=== PATIENT | female | born 1955 | race Caucasian/White ===

== ENCOUNTER 2017-02-16 08:54 | Inpatient (IN) | payer OTHER ==
[2017-01-28 10:30] VITALS: BMI 43.0
--- NOTE | 2017-01-28 11:02 | PAT Medication Instructions ---
Service Date Jan 28, 2017. Current Home Medication List Alprazolam (Xanax), 0.25 MG PO PRN Budesonide (Inhalation) (Pulmicort Respules 0.5MG/2ML), 2 ML INH QAM Cholecalciferol (Vitamin D3), 2,000 UNITS PO QAM Cyanocobalamin (Vitamin B12 500MCG), 1,000 MCG PO QAM Fluticasone Prop/Salmeterol (Advair Diskus 100/50 60 Dose), 2 PUFF INH BID Hydrocodone-Acetaminophen (Hydrocodone/Acetaminophen), 1 TAB PO Q4-6H Lisinopril (Zestril), 10 MG PO QAM Sulindac (Sulindac), 200 MG PO BID Medication Instructions For Your Scheduled Surgery - Check with surgeon for instructions: Sulindac (Sulindac), 200 MG PO BID - Hold the following medications the morning of surgery: Cholecalciferol (Vitamin D3), 2,000 UNITS PO QAM Cyanocobalamin (Vitamin B12 500MCG), 1,000 MCG PO QAM Lisinopril (Zestril), 10 MG PO QAM - Take the following medications the morning of surgery with a sip of water: Hydrocodone-Acetaminophen (Hydrocodone/Acetaminophen), 1 TAB PO Q4-6H (okay to take up to 4 hours prior to surgery if needed) Fluticasone Prop/Salmeterol (Advair Diskus 100/50 60 Dose), 2 PUFF INH BID Budesonide (Inhalation) (Pulmicort Respules 0.5MG/2ML), 2 ML INH QAM Alprazolam (Xanax), 0.25 MG PO PRN (if needed) - Take the following medications as scheduled the night before surgery: Hydrocodone-Acetaminophen (Hydrocodone/Acetaminophen), 1 TAB PO Q4-6H (if needed ) Fluticasone Prop/Salmeterol (Advair Diskus 100/50 60 Dose), 2 PUFF INH BID Alprazolam (Xanax), 0.25 MG PO PRN (if needed) If you have any questions please call us at [phone] or [phone] or [phone]
[2017-01-28 11:26] LABS: BASO % 0.6 %; BASO ABS # 0.03 K/uL (0-0.2); EOS ABS # 0.15 K/uL (0-0.5); HEMATOCRIT 41.4 % (37-47); HEMOGLOBIN 13.7 g/dL (12.0-16.0); IG# 0.01 K/uL (0.00-0.02); LYMPH % 22.2 %; LYMPH ABS # 1.11 K/uL (1.2-3.4); MEAN CELL VOLUME 100.7 fL (80-100); MEAN CORPUSCULAR HEMOGLOBIN 33.3 pg (25-34); MEAN CORPUSCULAR HGB CONC 33.1 g/dl (32-36); MEAN PLATELET VOLUME 9.2 fL (7.4-10.4); MONO % 12.2 %; MONO ABS # 0.61 K/uL (0.11-0.59); NEUT % 61.8 %; NEUT ABS # 3.08 K/uL (1.4-6.5); PLATELET COUNT 206 K/uL (130-400); RED CELL DISTRIBUTION WIDTH CV 12.4 % (11.5-14.5); RED CELL DISTRIBUTION WIDTH SD 45.5 fL (36.4-46.3); WHITE BLOOD COUNT 4.99 K/uL (4.8-10.8)
[2017-01-28 11:31] LABS: PTT PATIENT 25.3 SECONDS (21.0-31.0)
--- NOTE | 2017-01-28 11:37 | DIAGNOSTIC IMAGING REPORT ---
CHEST 2 VIEWS ROUTINE CLINICAL HISTORY: PAT preoperative evaluation COMPARISON STUDY: No previous studies for comparison. FINDINGS: The bones soft tissues and hemidiaphragms are normal. The cardiomediastinal silhouette is normal. The lungs are clear. The pulmonary vasculature is normal. IMPRESSION: Negative chest. The above report was generated using voice recognition software. It may contain grammatical, syntax or spelling errors. Electronically signed by: Dariel Ponce M.D. 01/28/2017 11:35 AM Dictated Date/Time: 01/28/2017 11:35 AM
[2017-01-28 12:29] LABS: CALCIUM 9.6 mg/dl (8.5-10.1); CREATININE 0.92 mg/dl (0.60-1.20); POTASSIUM 4.3 mmol/L (3.5-5.1)
--- NOTE | 2017-02-11 08:12 | HISTORY & PHYSICAL EXAMINATION ---
DATE OF ADMISSION: 02/16/2017 CHIEF COMPLAINT: Right knee pain. HISTORY OF PRESENT ILLNESS: This patient is a 61-year-old female who is status post a left knee replacement done about 7 months ago who presents for surgical treatment of her right knee. She continues to be bothered by right knee pain and discomfort. She has been treated extensively at [facility] with injections which have become less successful over time. Pain is global in her knee. It is increased with weightbearing. She has nighttime discomfort. She is happy with the left knee and would like to have her right knee replaced. PAST MEDICAL HISTORY: 1. Hypertension. 2. Asthma. 3. Obesity with a BMI of 43. 4. Sleep apnea with CPAP machine. 5. Hiatal hernia. 6. Gastroesophageal reflux disease. PAST SURGICAL HISTORY: Include: 1. Right eye surgery. 2. Left eye surgery. 3. Herniorrhaphy. 4. Left knee scope. 5. Left total knee replacement done on 07/11/2015. ALLERGIES: None. CURRENT MEDICINES: 1. Sulindac 200 mg twice a day. 2. Lisinopril 10 mg a day. 3. Vitamin B12. 4. Vitamin D3. 5. Advair 2 puffs twice a day. 6. Budesonide inhaler daily. 7. Ipratropium bromide inhaler daily. SOCIAL HISTORY: A 61-year-old white female. She is . She is from [place]. 1-2 drinks per week. Two children. No significant drug or alcohol at history. FAMILY HISTORY: Negative for heart disease, diabetes, or blood clots. REVIEW OF SYSTEMS: Negative for diabetes. Denies any chest pain or shortness of breath. No history of DVT or PE. PHYSICAL EXAMINATION: GENERAL: Reveals a healthy, pleasant middle-aged female looks to be in reasonably good health. HEENT: Benign. NECK: Supple. No lymphadenopathy. LUNGS: Clear to auscultation. HEART: Regular rate and rhythm. ABDOMEN: Soft, nontender, nondistended. EXTREMITIES: Grossly neurovascularly intact except as follows. Examination of both knees reveals the patient walks with a little bit of a waddling gait. Examination of the right knee reveals some slight varus alignment to her knee. She is tender over the medial joint line. Range of motion is 5-115. No instability. Moderate-sized knee effusion. X-RAYS: X-rays of the right knee revealed advanced right knee DJD. She has complete loss of her medial joint space. She has subchondral sclerosis. She has some tibial femoral subluxation. ASSESSMENT: A 61-year-old white female who is 7 months out from left knee replacement with advanced right knee degenerative joint disease. She has failed conservative care and would like to have her right knee replaced. PLAN: We are going to take her to the operating room and do a right total knee replacement. The risks and benefits of this procedure were explained to the patient including but not limited to DVT, PE, , infection, neurological injury, vascular injury, bleeding problem, pain, limited range of motion, stiffness, failure to relieve her symptoms, incomplete relief of symptoms, need for further surgery in the future, fracture, leg length inequality, nerve palsy, persistent pain, etc. The patient understands and desires to proceed. Informed consent was obtained. We did talk about holding her Sulindac 2 weeks preop and lisinopril the morning of surgery. She will bring her CPAP machine to the hospital. She is planning to be discharged to home with likely some home health, but does not have [employer] benefits.
[2017-02-16] VITALS (9 sets, daily range): BP systolic 121–190; BP diastolic 71–101; PULSE 65–98; TEMP 36.6–37.2; O2SAT 96–100; Ht 149.9 cm; Wt 96.3 kg
[~2017-02-16] VITALS: Ht 149.9 cm; Wt 96.3 kg
[~2017-02-16 08:54] MED LIST: ACETAMINOPHEN 500 MG TAB PO SCH; ADVIN10/60 INH; ALPR-411 PO; BUPIVACAINE 0.5 % 5 MG/1 ML PF 10ML VIAL ONE; BUPIVACAINE LIPOSOME 266 MG, BUPIVACAINE/EPINEPHRINE INJ 50 ML, SODIUM CHLORIDE 0.9% PF... INFIL SCH; CEFAZOLIN 2000MG IV PUSH 10 ML IV SCH; CHOL1CAP57 PO; CLN200 PO; CYAN500T13 PO; FAMOTIDINE 20 MG TAB PO SCH; GABAPENTIN 300 MG CAP PO SCH; HYDR-4380 PO; LACTATED RINGER'S 1000ML 1,000 ML IV SCH; LACTATED RINGER'S 1000ML 500 ML IV ONE; LACTATED RINGER'S 1000ML IV SCH; LISI-461 PO; METOCLOPRAMIDE HCL 10 MG TAB PO SCH; PLMINS INH; SCOPOLAMINE 1.5 MG TDSY TD SCH; TRANEXAMIC ACID INJ 1,000 MG in SYRINGE 0 ML IV SCH
--- NOTE | 2017-02-16 10:15 | History & Physical Bridge Note ---
H&P Re-Evaluation Bridge Note: I have examined the patient, reviewed the History & Physical and in the interval since the performance of the History & Physical I have noted the following changes of clinical significance: No changes noted
[2017-02-16] MEDS ORDERED: MIDAZOLAM HCL 1 MG/ML 2ML VIAL ONE ×3 (10:43→10:46)
[2017-02-16] MEDS ORDERED: FENTANYL CITRATE INJ 50 MCG/1 ML 2 ML VIAL ONE ×2 (10:44→12:41)
[2017-02-16] MEDS ORDERED: ATROPINE SULFATE 0.1 MG/ML 5ML SYR IV PRN (11:00)
[2017-02-16] MEDS ORDERED: ONDANSETRON INJ 2 MG/ML 2 ML VIAL IV PRN ×2 (11:00→14:00)
[2017-02-16] MEDS ORDERED: FENTANYL CITRATE INJ 50 MCG/1 ML 2 ML VIAL IV PRN (11:00)
[2017-02-16] MEDS ORDERED: EpHEDrine SULFATE INJ 50 MG/ML AMP IV PRN (11:00)
[2017-02-16] MEDS ORDERED: SODIUM CHLORIDE 0.9% PF 50 ML VIAL ONE (12:03)
[2017-02-16] MEDS ORDERED: BUPIVACAINE LIPOSOME 1/3% 266 MG/20 ML VIAL INFIL ONE (12:03)
[2017-02-16] MEDS ORDERED: BUPIVACAINE/EPINEPHRINE 0.25% 1:200,000 30 ML VIAL ONE (12:03)
[2017-02-16] MEDS ORDERED: BACITRACIN 50000 UNIT VIAL ONE (12:03)
[2017-02-16] MEDS ORDERED: LIDOCAINE HCL 2% 2 ML VIAL (20MG/ML) ONE (13:11)
[2017-02-16] MEDS ORDERED: PROPOFOL IV EMULSION 10 MG/ML 20 ML VIAL IV ONE (13:11)
[2017-02-16] MEDS ORDERED: EpHEDrine SULFATE INJ 50 MG/ML AMP ONE (13:12)
--- NOTE | 2017-02-16 13:58 | [facility] Post Operative Brief Note ---
Immediate Operative Summary Operative Date Feb 16, 2017. Pre-Operative Diagnosis Right Knee Advanced Degenerative Joint Disease Post-Operative Diagnosis Right Knee Advanced Degenerative Joint Disease Procedure(s) Performed Right Total Knee Arthroplasty Surgeon Dr. Rucker Photographer Apprentice Surgeon(s) BRANDY Leonard Estimated Blood Loss 50ml Findings Right Knee DJD Fluids (cc crystalloids) 1300 cc Specimens A. Right Knee Bone and Tissue Drains None Anesthesia Spinal Complication(s) None Disposition Recovery Room / PACU
[2017-02-16] MEDS ORDERED: METOCLOPRAMIDE HCL INJ 5 MG/ML 2 ML VIAL IV PRN (14:00)
[2017-02-16] MEDS ORDERED: BISACODYL 10 MG SUPP PR PRN (14:00)
[2017-02-16] MEDS ORDERED: DiphenhydrAMINE HCL 50 MG/ML VIAL IV PRN (14:00)
[2017-02-16] MEDS ORDERED: MAGNESIUM HYDROXIDE SUSP 30 ML UDC PO PRN (14:00)
[2017-02-16] MEDS ORDERED: SILVER SULFADIAZINE 1% CR 50 GM JAR EXT PRN (14:00)
[2017-02-16] MEDS ORDERED: ALUMINUM/MAGNESIUM/SIMETH (MAALOX MAX) 30 ML UDC PO PRN (14:00)
[2017-02-16] MEDS ORDERED: MoRPHine SULFATE 2 MG/ML CARP IV PRN (14:00)
[2017-02-16] MEDS ORDERED: ZOLPIDEM TARTRATE 5 MG TAB PO PRN (14:00)
--- NOTE | 2017-02-16 14:24 | DIAGNOSTIC IMAGING REPORT ---
R KNEE 1 OR 2 VIEWS ROUTINE CLINICAL HISTORY: 61 years-old Female presenting with AP/LATERAL IN PACU RIGHT KNEE. TECHNIQUE: Frontal and lateral views of the right knee were obtained. COMPARISON: 12/31/2016. FINDINGS: There has been interval total right knee arthroplasty with patellar resurfacing. Expected intra-articular and subcutaneous emphysema. Overlying skin cierra. Angulation of the patella on lateral view may be within the range of expected postsurgical findings. No acute fracture. IMPRESSION: Expected postsurgical appearance status post total right knee arthroplasty with patellar resurfacing. Electronically signed by: Isael Alfaro M.D. 02/16/2017 2:22 PM Dictated Date/Time: 02/16/2017 2:21 PM
--- NOTE | 2017-02-16 14:41 | OPERATIVE REPORT ---
DATE OF OPERATION: 02/16/2017 SURGEON: Tutu Rucker MD UROLOGY NURSE: BRANDY Salas PREOPERATIVE DIAGNOSIS: Right knee degenerative joint disease. POSTOPERATIVE DIAGNOSIS: Same. PROCEDURE PERFORMED: Right cemented posterior stabilized total knee arthroplasty. COMPLICATIONS: None. ESTIMATED BLOOD LOSS: 50 mL FLUID REPLACEMENT: 1300 mL crystalloid fluid replacement. TOURNIQUET TIME: 53 minutes at 300 mmHg. ANESTHESIA: Spinal with adductor canal block. DRAINS: None. SPECIMENS: Right knee sent for pathology. OPERATIVE INDICATIONS: The patient is a 61-year-old female who has had a long history of knee problems. She has been through extensive conservative treatment without adequate relief. She underwent a left knee replacement about 7 months ago and has done remarkably well. She continued to be bothered by right knee pain. She would like to proceed with operative treatment. OPERATIVE FINDINGS: Operative findings revealed advanced right knee DJD. She had extensive grade 4 changes in the medial femoral condyle and medial tibial plateau and less severe changes of the patellofemoral joint. She had a varus deformity to her knee. She had osteophytes medially as well as posteriorly. A moderate-sized joint effusion. OPERATIVE IMPLANTS: Operative implants consisted of: 1. Biomet Vanguard size 65 right posterior stabilized femoral component. 2. Biomet size 67 tibial tray. 3. A 10-mm posterior stabilized polyethylene insert. 4. A 28 x 8 all poly patella. OPERATIVE PROCEDURE: The patient taken to the operating room, identified and placed on the operating table in supine position. All contact areas were appropriately padded. IV antibiotics were provided by anesthesia team. A spinal anesthetic and adductor canal block had been provided in the holding area. Lyn catheter was placed in sterile fashion. Right thigh tourniquet was then placed and the right lower extremity was then prepped and draped in usual sterile fashion. The right leg was elevated and exsanguinated with Esmarch and tourniquet was placed at 300 mmHg. An anterior approach to the right knee was then performed through a longitudinal incision centered over the patella. Sharp dissection was carried out through the subcutaneous tissues down to the level of the extensor mechanism. A medial parapatellar arthrotomy incision was made. A subperiosteal dissection was carried out medially. The fat pad was resected from beneath the patellar tendon. The lateral patellofemoral ligament was released. The patella was everted and the knee was flexed. The osteophytes were taken off the distal femur. The ACL and PCL were then released from the distal femur and the tibia subluxated anteriorly. The external tibial alignment jig was then placed in the anterior face of the tibia and adjusted 14 mm medially. Proximal tibial cut was made to remove about a millimeter or 2 mm of bone from the most deficient aspect of the medial tibial plateau. Tibia was sized to a size 67. Some osteophytes were taken off medially and posteromedially. Attention was then drawn to the femur. The distal femur was entered with a sharp drill. Intramedullary canal was suctioned. A right 5-degree valgus cutting guide was placed. Distal femoral cutting block was pinned in place and the distal femoral cut was made to take an additional 3 mm of bone off the distal femur. The femur was then sized to a size 65. We did downsize this almost an entire size. Of note, her other side was a 62.5. The AP cutting block was pinned parallel to the epicondylar axis, which was 3 degrees of external rotation. The anterior cut, anterior chamfer, posterior cut, posterior chamfer cuts were made. Box cutting guide was placed and adjusted slight lateral and the box cut was made. The knee was flexed. The remnants of the medial and lateral menisci were excised. The osteophytes were taken off the posterior aspect of the femur. A trial femoral component was placed. Tibial tray was pinned in maximum external rotation and drill and stem punch were used to create defect in proximal tibia for the tibial tray. The knee was then trialed and the 10-mm insert fit most appropriately. Attention was then drawn to the patella. The patella was cleaned of all soft tissues. Patellar thickness measured 21 mm in thickness and it was cut down to 13. It was sized to a size 28 patella. Lug holes were drilled for the 28 patella. Lateral osteophyte was removed. Patella button was placed. Knee was taken through range of motion and patella tracked nicely with no thumbs test. Attention was then drawn toward placement of the permanent components. All trial components were removed. Bone plug was placed in the distal femur to limit blood loss. A double batch of Palacos G cement was mixed. A right size 65 posterior stabilized femoral component, size 67 tibial tray, a 10-mm posterior stabilized polyethylene insert, a 28 x 8 all poly patella were then cemented in place. Knee was brought out into full extension until cement hardened. A final cement check was then performed. Pericapsular tissues were injected with a total of 100 mL of a combination of 20 mL of Exparel, 30 mL of normal saline, 50 mL of 0.25% Marcaine with epinephrine. The tourniquet was then let down for a final tourniquet time of 53 minutes. Hemostasis was assured with the use of electrocautery. The extensor mechanism was then closed with a combination of #1 PDS suture and #1 Vicryl suture in a [id number] fashion. Extensor mechanism was checked and found to be intact. The subcutaneous tissues were then closed with 2-0 Dexon suture in a buried interrupted fashion. Skin was closed with skin cierra. Leg was then cleaned and dried and a sterile dressing of Xeroform, 4 x 4's, sterile cast padding and Corona bandage were applied. The patient was then transferred to the recovery room in stable condition. The patient tolerated the procedure well with no complications. All needle and sponge counts were correct at the end of the operation. I attest to the content of the Intraoperative Record and any orders documented therein. Any exception s are noted below.
--- NOTE | 2017-02-16 15:49 | Anesthesiology Progress Note ---
Anesthesia Post Op Note Date & Time Feb 16, 2017 at 15:49 Vital Signs Pain Intensity: 0.0 Vital Signs Past 12 Hours Date Time Temp Pulse Resp B/P (MAP) Pulse Ox O2 Delivery O2 Flow Rate FiO2 02/16/17 15:44 36.7 79 18 136/85 (102) 100 Nasal Cannula 2.0 02/16/17 15:24 100 Nasal Cannula 2.0 02/16/17 15:15 36.6 73 18 125/79 (94) 100 Nasal Cannula 2.0 02/16/17 14:45 100 Nasal Cannula 2.0 02/16/17 14:45 36.6 79 16 131/77 (95) 100 Nasal Cannula 2.0 02/16/17 14:30 36.3 78 18 128/66 97 Nasal Cannula 2 02/16/17 14:20 81 17 138/84 99 Oxymask 10 02/16/17 14:10 79 16 132/66 100 Oxymask 10 02/16/17 14:03 36.6 83 13 137/80 99 Oxymask 10 02/16/17 12:15 91 20 93/64 (74) 97 Mask 10 02/16/17 09:19 36.6 92 20 190/101 97 Room Air Notes Mental Status: alert / awake / arousable, participated in evaluation Pt Amnestic to Procedure: Yes Nausea / Vomiting: adequately controlled Pain: adequately controlled Airway Patency, RR, SpO2: stable & adequate BP & HR: stable & adequate Hydration State: stable & adequate Neuraxial Anesthesia: was administered, sensory block is resolving Anesthetic Complications: no major complications apparent
[2017-02-16] MEDS: OXYCODONE HCL IR 5 MG TAB (IMMEDIATE RELEASE) PO PRN ×2 (15:57→16:52)
[2017-02-16] MEDS: D5W AND 1/2NSS + 20MEQ KCL 1,000 ML IV SCH ×2 (15:58→23:58)
[2017-02-16] MEDS: CHECK SCOPOLAMINE PATCH PLACEMENT SCH ×2 (15:58→23:59)
[2017-02-16] MEDS: KETOROLAC TROMETHAMINE 30 MG/ML VIAL IV. SCH ×2 (15:58→22:00)
[2017-02-16] MEDS: ACETAMINOPHEN 500 MG TAB PO SCH ×2 (16:49→23:59)
[2017-02-16] MEDS: FERROUS GLUCONATE 324 MG TAB PO SCH (17:22)
[2017-02-16] MEDS ORDERED: TRANEXAMIC ACID INJ 1,000 MG in SODIUM CHLORIDE 0.9% 100ML 100 ML IV SCH (20:00)
[2017-02-16] MEDS: CEFAZOLIN IV 2,000 MG in SYRINGE 0 ML IV SCH (20:58)
[2017-02-16] MEDS: FLUTICASONE/SALMETEROL 100/50 (ADVAIR) 14 PUFF/1 INHALER INH SCH (20:59)
[2017-02-16] MEDS: TAPENTADOL ER 50 MG TABCR PO SCH (20:59)
[2017-02-16] MEDS: SENNA 8.6 MG TAB PO SCH (21:00)
[2017-02-16] MEDS: ASPIRIN 325 MG ECTAB PO SCH (21:00)
[2017-02-16] MEDS: DOCUSATE SODIUM 100 MG CAP PO SCH (21:00)
[2017-02-16] MEDS ORDERED: FRRG PO (21:34)
[2017-02-16] MEDS ORDERED: ACET-24 PO (21:34)
[2017-02-16] MEDS ORDERED: RXC5 PO (21:34)
[2017-02-16] MEDS ORDERED: ASPEC325 PO (21:34)
--- NOTE | 2017-02-16 21:37 | Discharge Instructions ---
Discharge Instructions Date of Service Feb 16, 2017. Admission Reason for Admission: Right Knee Degenerative Joint Disease Discharge Discharge Diagnosis / Problem: Right Knee Replacement Discharge Goals Goal(s): Decrease discomfort, Improve function, Increase independence, Improve disease control, Therapeutic intervention Activity Recommendations Activity Limitations: per Instructions/Follow-up section Weightbearing Status: Right weightbearing . Instructions / Follow-Up Instructions / Follow-Up ACTIVITY RECOMMENDATIONS: Physical Therapy: * You will go to physical therapy three times each week for four to six weeks after your surgery in order to regain your knee range of motion and to retrain your knee to work properly. * It is just as important to make sure you are getting your knee perfectly straight as it is to regain your knee bend. * Taking a pain pill an hour before therapy can help you have a more productive and comfortable therapy session. Home Exercise: * You were shown a series of exercises (heel props, heel slides, etc.) in the hospital. Do these exercises three to four times each day including the exercises you were shown in physical therapy. Walking: * Get up and walk several times each day. For the first four weeks, try not to stand or walk for more than one hour at a time. If you do stand or walk for more than one hour, you will not hurt anything, but your knee and leg will likely swell. * As you feel comfortable, you may change from the walker or crutches to a cane and then to independent walking. MEDICATIONS: New Medicine: * You will likely be taking one or more of these medications: 1. Oxycodone - A quick and shorter-acting pain medication. Take one to two tablets every four to six hours to lessen your pain. 2. Iron Sulfate - Take two times each day for the month after surgery to help you replace the blood lost during surgery. 3. Aspirin - Thins your blood to lessen the chance of forming a blood clot. * The most common side effects of pain medicine and iron are nausea and constipation. If nausea or constipation is too much of a problem or if you have any questions about your new medicines or doses, call [facility] at . We will try to help you manage these issues. VERY IMPORTANT TO READ AND REVIEW" Pain: * The immediate post-operative period after knee replacement surgery is often quite painful. * You are given a prescription for pain medicine. You should take it, as directed, when you need it, especially before physical therapy and before going to bed. Pain that interferes with sleep is very common and can last several months. * You will likely need pain medicine for the first four to six weeks. It will not stop all of the pain. The pain will lessen and as you feel better, you may change to milder pain medicine such as Tylenol. * The most common side effects of pain medicine are nausea and constipation, so don't take more than you need. SPECIAL CARE INSTRUCTIONS: TEDs/Elastic Stockings: * The white elastic stockings help limit swelling and prevent blood clots from forming in your legs. The more you wear them, the more they work. * Wear them for six weeks after knee replacement surgery and four weeks after partial knee replacement. Prevention of Infection: * Take antibiotics one hour before any dental cleaning, dental work, urological procedure, gastrointestinal procedure or any invasive surgery in order to prevent your new joint from getting infected. * You may get the antibiotics from the doctor performing the procedure or you may call our office at before and we will call in a prescription to the pharmacy of your choice. Things to Watch For: * Drainage from the incision site that occurs more than one week after your surgery. * Severely increased knee/leg pain or swelling. * Increased redness at the incision site. * Fever above 102 degrees Fahrenheit. * Unusual chest pain or shortness of breath. * Unusual pain or burning with urination. Call [facility] at with any of the above problems or if you have any questions about your medicines or recovery. FOLLOW UP VISIT: Make an appointment to see your doctor for approximately two weeks after surgery for a progress check and staple removal by calling the office at . Current Hospital Diet Patient's current hospital diet: Regular Diet Discharge Diet Recommended Diet: Regular Diet Procedures Procedures Performed: Right Total Knee Arthroplasty Pending Studies Studies pending at discharge: no Medical Emergencies . Who to Call and When: Medical Emergencies: If at any time you feel your situation is an emergency, please call [phone] immediately. . Non-Emergent Contact Non-Emergency issues call your: Surgeon . "Provider Documentation" section prepared by Tutu Rucker. . VTE Core Measure Inpt VTE Proph given/why not?: Other Anticoagulation, T.E.D. Stockings, SCD's
--- NOTE | 2017-02-16 22:25 | PROGRESS NOTE ---
DATE: 02/16/2017 SUBJECTIVE: A 61-year-old white female postop from a right knee replacement. She is having some pain. No chest pain or shortness of breath. Not feeling dizzy or lightheaded. Isolated right knee pain. OBJECTIVE: VITAL SIGNS: Temperature 36.9. Vital signs stable. GENERAL: A pleasant, middle-aged female. She is lying in bed, looks reasonably comfortable. LUNGS: Clear to auscultation. HEART: Has a regular rate and rhythm. ABDOMEN: Soft, nontender, nondistended. EXTREMITIES: Grossly neurovascularly intact except as follows. Examination of the right leg reveals the leg to be well aligned. Dressing is clean, dry and intact. She can dorsiflex and plantar flex her foot appropriately. She is neurologically intact. IMAGING: X-rays of the right knee from recovery room were reviewed. It shows a cemented posterior stabilized total knee arthroplasty. Components look to be in good position. No signs of problems. It is fairly rotated film. ASSESSMENT: A 61-year-old female postop from right knee replacement, doing pretty well. Pain is controlled. She is neurologically intact. PLAN: 1. Deep venous thrombosis prophylaxis including thigh-high TEDs, SCDs, and aspirin 2. Pain control, doing pretty well with current pain regimen. 3. IV antibiotics x24 hours. 4. Disposition: She is planning to be discharged to home and going to do outpatient therapy.
--- NOTE | 2017-02-16 23:44 | NUR ---
A: notified Dr. Casarez covering for Dr. Rucker about patients olmedo putting out bloody urine. Informed him that his is a complete change from earlier in the shift when she had clear yellow urine in her olmedo. New orders received to NOT pull olmedo in AM until Dr. Rucker sees it and to HOLD Torodol IV.
[2017-02-17] VITALS (12 sets, daily range): BP systolic 127–144; BP diastolic 79–84; PULSE 75–90; TEMP 37–38.2; O2SAT 92–96
[2017-02-17] MEDS ORDERED: NURSING VERBAL MED ORDER ONE ×3 (03:45→08:45)
[2017-02-17] MEDS: CEFAZOLIN IV 2,000 MG in SYRINGE 0 ML IV SCH (04:24)
[2017-02-17 06:01] LABS: HEMATOCRIT 35.2 % (37-47); HEMOGLOBIN 11.3 g/dL (12.0-16.0); MEAN CELL VOLUME 100.3 fL (80-100); MEAN CORPUSCULAR HEMOGLOBIN 32.2 pg (25-34); MEAN CORPUSCULAR HGB CONC 32.1 g/dl (32-36); MEAN PLATELET VOLUME 9.2 fL (7.4-10.4); PLATELET COUNT 172 K/uL (130-400); RED CELL DISTRIBUTION WIDTH CV 12.4 % (11.5-14.5)
[2017-02-17] MEDS: ACETAMINOPHEN 500 MG TAB PO SCH ×3 (06:13→21:56)
[2017-02-17] MEDS: OXYCODONE HCL IR 5 MG TAB (IMMEDIATE RELEASE) PO PRN ×3 (06:30→17:28)
[2017-02-17 06:38] LABS: CALCIUM 8.5 mg/dl (8.5-10.1); CREATININE 1.24 mg/dl (0.60-1.20); POTASSIUM 5.6 mmol/L (3.5-5.1)
[2017-02-17] MEDS: BUDESONIDE 0.5 MG/2 ML VIAL (PULMICORT) INH SCH (07:22)
[2017-02-17] MEDS: CHECK SCOPOLAMINE PATCH PLACEMENT SCH ×4 (08:00→23:45)
--- NOTE | 2017-02-17 08:12 | PROGRESS NOTE ---
DATE: 02/17/2017 SUBJECTIVE: 61-year-old white female postop day 1 from a right knee replacement. She is doing pretty well. Had a pretty good night. The pain is controlled. No chest pain or shortness of breath. Not feeling dizzy or lightheaded. OBJECTIVE: VITAL SIGNS: Temperature is 37.4. Vital signs stable. PHYSICAL EXAMINATION: GENERAL: Reveals a healthy pleasant, middle-aged female. She is sitting up in bed, looks pretty comfortable. EXTREMITIES: Examination of the right leg reveals the dressing to be clean, dry and intact. She can dorsiflex and plantarflex her foot appropriately. She is neurologically intact. LABORATORY DATA: Hemoglobin 11.3. Hematocrit 35.2. Electrolytes are stable. Creatinine is slightly elevated at 1.24. Potassium slightly elevated at 5.6. ASSESSMENT: 61-year-old white female postop day 1 from right knee replacement, doing pretty well. Pain is controlled. She is neurologically intact. Her creatinine is up a little bit and we are going to hold her Toradol. We are going to stop her IV fluids and get rid of the potassium. PLAN: 1. DVT prophylaxis including thigh-high TEDs, SCDs, and aspirin twice a day. 2. PT/OT. Weightbearing as tolerated. Right total knee protocol. 3. Pain control, doing pretty well with current pain regimen. 4. Elevated creatinine. We are going to stop her Toradol and encourage p.o. intake. We will also get rid of the potassium out of her IV. 5. Disposition: She is planning to be discharged to home and do outpatient therapy once adequately recovered.
--- NOTE | 2017-02-17 08:32 | Anesthesiology Progress Note ---
Anesthesia Post Op Note Date & Time Feb 17, 2017 at 08:31 Vital Signs Pain Intensity: 5.0 Vital Signs Past 12 Hours Date Time Temp Pulse Resp B/P (MAP) Pulse Ox O2 Delivery O2 Flow Rate FiO2 02/17/17 07:35 37.4 02/17/17 07:32 37.7 83 18 127/81 (96) 95 Room Air 02/17/17 07:23 87 18 96 Room Air 02/17/17 04:30 37.7 02/17/17 04:25 38.2 02/17/17 03:23 37.9 02/17/17 03:22 38.0 88 16 143/79 (100) 95 Room Air 02/16/17 23:14 36.8 65 16 132/83 (99) 100 Room Air 02/16/17 20:45 Room Air Notes Mental Status: alert / awake / arousable, participated in evaluation Pt Amnestic to Procedure: Yes Nausea / Vomiting: adequately controlled Pain: adequately controlled Airway Patency, RR, SpO2: stable & adequate BP & HR: stable & adequate Hydration State: stable & adequate Neuraxial Anesthesia: sensory block resolved Anesthetic Complications: no major complications apparent
[2017-02-17] MEDS: TAPENTADOL ER 50 MG TABCR PO SCH ×2 (09:05→21:55)
[2017-02-17] MEDS: FLUTICASONE/SALMETEROL 100/50 (ADVAIR) 14 PUFF/1 INHALER INH SCH ×2 (09:05→21:55)
[2017-02-17] MEDS: LISINOPRIL 10 MG TAB PO SCH (09:05)
[2017-02-17] MEDS: PANTOprazole SOD 40 MG TAB PO SCH (09:06)
[2017-02-17] MEDS: MULTIVITAMIN TAB PO SCH (09:06)
[2017-02-17] MEDS: CYANOCOBALAMIN 500 MCG TAB (VIT B-12) PO SCH (09:06)
[2017-02-17] MEDS: CHOLECALCIFEROL 1000 INTER.UNIT TAB PO SCH (09:06)
[2017-02-17] MEDS: DOCUSATE SODIUM 100 MG CAP PO SCH ×2 (09:06→21:55)
[2017-02-17] MEDS: ASPIRIN 325 MG ECTAB PO SCH ×2 (09:06→21:55)
[2017-02-17] MEDS: FERROUS GLUCONATE 324 MG TAB PO SCH ×3 (09:06→17:51)
--- NOTE | 2017-02-17 10:07 | NUR ---
Case Management: Met with pt at bedside. Pt's and granddaughter at bedside and pt gave me permission to speak with them present. Pt states she lives with her who is able to assist her. She lives in a one story home with ramp access. She reports being independent with ADLs and ambulation. She has a walker and electric wheelchair. Pt plans to return home and go to [facility] for outpatient therapy. Encouraged pt to call by tomorrow to schedule appointment. Pt verbalized understanding. No discharge needs identified.
--- NOTE | 2017-02-17 14:04 | NUR ---
The patient has demonstrated progress toward goals and readiness for discharge as demonstrated by: Patient alert and oriented x4, pain controlled with PO meds. Pt oob with assist of one and use of walker. [place] dressing clean, dry, and intact to RLE. CMS wnl, pedal pulses palpable. Plans for discharge with outpatient therapy, date uncertain.
[2017-02-17 16:43] LABS: CALCIUM 8.8 mg/dl (8.5-10.1); CREATININE 1.22 mg/dl (0.60-1.20); POTASSIUM 4.6 mmol/L (3.5-5.1)
[2017-02-17] MEDS: SENNA 8.6 MG TAB PO SCH (22:10)
[2017-02-18] MEDS: ACETAMINOPHEN 500 MG TAB PO SCH ×2 (06:08→13:23)
[2017-02-18] MEDS: OXYCODONE HCL IR 5 MG TAB (IMMEDIATE RELEASE) PO PRN ×3 (06:08→13:24)
[2017-02-18] MEDS: BUDESONIDE 0.5 MG/2 ML VIAL (PULMICORT) INH SCH (07:33)
[2017-02-18 07:35] VITALS: PULSE 80; O2SAT 93
[2017-02-18 07:37] VITALS: BP 141/84; PULSE 80; TEMP 37.2; O2SAT 93
[2017-02-18] MEDS: CHECK SCOPOLAMINE PATCH PLACEMENT SCH (07:59)
[2017-02-18] MEDS: PANTOprazole SOD 40 MG TAB PO SCH (08:19)
[2017-02-18] MEDS: MULTIVITAMIN TAB PO SCH (08:19)
[2017-02-18] MEDS: FERROUS GLUCONATE 324 MG TAB PO SCH ×2 (08:19→13:23)
[2017-02-18] MEDS: CHOLECALCIFEROL 1000 INTER.UNIT TAB PO SCH (08:19)
[2017-02-18] MEDS: CYANOCOBALAMIN 500 MCG TAB (VIT B-12) PO SCH (08:19)
[2017-02-18] MEDS: FLUTICASONE/SALMETEROL 100/50 (ADVAIR) 14 PUFF/1 INHALER INH SCH (08:19)
[2017-02-18] MEDS: TAPENTADOL ER 50 MG TABCR PO SCH (08:20)
[2017-02-18] MEDS: LISINOPRIL 10 MG TAB PO SCH (08:20)
[2017-02-18] MEDS: ASPIRIN 325 MG ECTAB PO SCH (09:23)
[2017-02-18] MEDS: DOCUSATE SODIUM 100 MG CAP PO SCH (09:23)
--- NOTE | 2017-02-18 09:50 | NUR ---
ID: The pt. has demonstrated progress toward goals and readiness for discharge as demonstrated by: Pt. is A/Ox4, VSS. Pt. tolerating pain with ROUTINE/PRN pain medications. Pt. ambulating with assist of 1 with a walker and supervision. Tolerating a Reg diet. Discharge plan: home with outpatient therapy services. Encouraged to ring for assistance, use Triflow, and cough and deep breath 10x/hr. Call mota within reach. See EMR for vitals and assessment details.
[2017-02-18 12:22] VITALS: BP 141/84; PULSE 80; TEMP 37.2; O2SAT 93
--- NOTE | 2017-02-28 15:46 | DISCHARGE SUMMARY ---
ADMITTING PHYSICIAN AND SURGEON: Dr. Rucker. ADMITTING DIAGNOSIS: Right knee degenerative joint disease. SURGERY PERFORMED: Right total knee arthroplasty. SECONDARY DIAGNOSES: Hypertension, asthma, obesity, sleep apnea, hiatal hernia, and gastroesophageal reflux disease. CONSULTS: None obtained. HISTORY AND PHYSICAL EXAMINATION: Well documented in the patient's chart. HOSPITAL COURSE: The patient admitted on 02/16/2017 and underwent a total knee arthroplasty, tolerated the procedure well and there were no complications. She was transferred to the PACU postoperatively and later to the orthopedic floor for further care. She was given Ancef for antibiotic prophylaxis, OPHELIA stockings, SCDs and aspirin for DVT prophylaxis. Her hemoglobin, hematocrit and vital signs were monitored during her hospital stay and remained stable. She developed some mild postoperative anemia, did not require any blood transfusions. There were no complications. By postoperative day #2, she was tolerating a regular diet, pain was controlled with oral pain medicine, she was participating in physical therapy and had no signs or symptoms of deep vein thrombosis. On postop day #2, she was discharged home. She was given printed discharge instructions including new prescriptions for extra strength Tylenol, aspirin 325 mg b.i.d., an iron supplement and oxycodone. Continue home medications with the exception of her hydrocodone and acetaminophen which she was told to stop. Continue physical therapy, weightbearing as tolerated, OPHELIA stockings and follow up in 10-12 days or sooner if there are any problems or concerns.
== END 2017-02-18 13:30 | disposition home or self-care (01) | DRG 470 ==
LOC: C.ACU 08:54 → C.3E 14:02 → ENRESERV 14:20
PROVIDERS: ADMIT Orthopaedic Surgery Sports Medicine; ATTEND Orthopaedic Surgery Sports Medicine
PROC: 0SRC0J9 Replacement of Right Knee Joint with Synthetic Substitute, Cemented, Open Approach (ICD-10-PCS; principal; 2017-02-16 11:20)
DX: M17.11 Unilateral primary osteoarthritis, right knee (principal); Z68.41 Body mass index [BMI] 40.0-44.9, adult; I10 Essential (primary) hypertension; J45.909 Unspecified asthma, uncomplicated; E66.9 Obesity, unspecified; G47.30 Sleep apnea, unspecified; K21.9 Gastro-esophageal reflux disease without esophagitis; Z79.899 Other long term (current) drug therapy; Z72.89 Other problems related to lifestyle; Z96.652 Presence of left artificial knee joint